=== PATIENT | male | born 1960 | race Caucasian/White ===

== ENCOUNTER 2020-02-18 07:04 | Day surgery (SDC) | payer BC ==
[2020-02-17 11:51] LABS: HEMATOCRIT 44.3 % (42.0-54.0); HEMOGLOBIN 14.7 g/dL (13.5-17.5); MCH 31.3 pg (26.0-34.0); MCHC 33.2 g/dL (31.0-37.0); MCV 94.3 fL (80.0-100.0); MEAN PLATELET VOLUME 12.3 fL (7.4-10.4); RBC 4.7 10x6/uL (4.20-6.10); RDW 14.8 % (11.5-14.5); WBC 7.2 10x3/uL (4.8-10.8)
[2020-02-17 11:54] LABS: CALC OSMOLALITY 276 mosm/kg (275-300); CALCIUM 8.5 mg/dL (8.5-10.1); CARBON DIOXIDE 27.6 mmol/L (21.0-32.0); CHLORIDE - SERUM 103 mmol/L (98-107); CREATININE - SERUM 0.9 mg/dL (0.6-1.3); GLUCOSE 98 mg/dL (74-106); POTASSIUM - SERUM 4.3 mmol/L (3.5-5.1); SODIUM 139 mmol/L (136-145); UREA NITROGEN 9 mg/dL (7-18); eGFR NON AFRICAN AMERICAN > 90 mL/min (90-120)
[~2020-02-18] VITALS: Ht 182.9 cm; Wt 99.8 kg
[~2020-02-18 07:04] MED LIST: DILTIAZEM 24HR180 M4 PO; LISINOPRIL40 MG PO; MICARDIS40 MG PO
[2020-02-18 07:34] VITALS: BP 127/70; Ht 182.9 cm; Wt 99.8 kg
[2020-02-18] MEDS ORDERED: PERCOCET 10-321 EAC1 PO (09:17)
[2020-02-18] MEDS ORDERED: VISTARIL50 MG PO (09:18)
--- NOTE | 2020-02-18 12:44 | NUR ---
DC INSTRUCTIONS GIVEN TO PT. STATES UNDERSTANDING. DC'D IV CATH FULLY INTACT.
--- NOTE | 2020-02-18 12:57 | NUR ---
PT LEFT UNIT VIA WC AT 1245
--- NOTE | 2020-02-19 10:34 | OP ---
PATIENT NAME: HARSHIL CHERRY MEDICAL RECORD: [id number] :58 LOCATION:[facility] ADMISSION DATE: SURGEON: ARTURO WARNER DO DATE OF OPERATION: 02/18/2020 PROCEDURE PERFORMED: Right shoulder arthroscopy with subacromial decompression, distal clavicle excision, biceps tenodesis. PREOPERATIVE DIAGNOSES: Right shoulder rotator cuff tear, acromioclavicular joint arthritis, subacromial impingement and labral tear. POSTOPERATIVE DIAGNOSES: Right shoulder acromioclavicular joint arthritis, subacromial impingement and labral tear. INDICATIONS: Mr. Cherry is a 59-year-old male that has had right shoulder pain for quite some time. He had a rotator cuff repair done quite a few years ago. He had continued pain and was hurting quite a bit. According to MRI report, he had an irregular tear of the rotator cuff and AC joint arthritis as well as subacromial impingement and possible SLAP tear. I informed him of the risks including infection, bleeding, damage to nerves and vessels, need for further surgery, continued pain, retear of the rotator cuff and he signed the consent. SURGEON: Arturo Warner MD DESCRIPTION OF PROCEDURE: The patient was taken to the operative suite. After getting a block by anesthesia in preoperative area, given 900 mg of clindamycin, laid in the left lateral decubitus position with the right shoulder up. Right shoulder was then prepped and draped in sterile fashion. The patient had been sedated and LMA placed. The timeout was performed. Everyone was in agreeance with the correct side, site, patient and procedure. After he was prepped and draped, we then inflated the joint with 6 mL of normal saline through the posterior portal and 18-gauge spinal needle. We then made an incision with an 11-blade scalpel and trocar was entered into the joint. Once the joint was entered, I established an anterior portal with an 18-gauge spinal needle and 11-blade scalpel and the trocar was brought in. I then inspected, he did have a type 2 SLAP tear noted about the superior labrum; however, there was only a partial tear really, not much of the subscapularis and I did not see on the articular side tear at all of the supraspinatus or infraspinatus. There were no loose bodies in the joint. The cartilage was in good repair, nothing in the inferior gutter. I then went to the subacromial space and the bicep was cut with a burner. A tenotomy was done at the long head of the biceps tendon. I then went to subacromial space through subacromial decompression, distal clavicle excision, opened up the AC joint to approximately 7-mm. I then did an acromioplasty and took the bursa over the supraspinatus. The rotator cuffs were then inspected on the bursal side and again no tears were seen. I then removed the scope and went to the anterior humerus, made an incision and fished out the long head of the biceps tendon. I then put a 2.9 JuggerLoc unicortical bicep fixation anchor in and looped it through that and the long head of the biceps tendon was cinched down to the humerus and took a free needle and went through the biceps tendon and tied that down to the free sutures of the anchor and then tied that and cut the excess suture and excess tendon. We then irrigated and it was closed by Kalin Ny, certified surgical first breaker feeder with 2-0 Vicryl in inverted interrupted fashion, 4-0 Monocryl an on the skin. He then closed the portal sites with 4-0 Monocryl in an inverted interrupted fashion and then put glue on all of them. He was then placed with Telfa and Tegaderm on the OPERATIVE REPORT [id number] HARSHIL CHERRY incisions and placed in a sling. He was awakened and taken to recovery in stable condition. BLOOD LOSS: Minimal. COMPLICATIONS: None. TRANSINT:[id number] Voice Confirmation ID: [id number] DOCUMENT ID: [id number] ARTURO WARNER DO at 1034 CC: [id number] DICTATION DATE: 02/18/20 1013 TRAINING OFFICER: 02/18/20 1718 [facility] 02/18/20 [id number] [place] [address]
== END 2020-02-18 12:45 | disposition home or self-care (01) ==
LOC: D.OPS 07:04 → D.PAN 11:15 → D.OPS 12:45
PROVIDERS: Anesthesiology; ATTEND Orthopaedic Surgery
DX: M75.121 Complete rotator cuff tear or rupture of right shoulder, not specified as traumatic (principal); M19.011 Primary osteoarthritis, right shoulder; M25.811 Other specified joint disorders, right shoulder; I10 Essential (primary) hypertension; Z72.0 Tobacco use

== ENCOUNTER 2020-07-14 05:12 | Day surgery (SDC) | payer BC ==
[2020-07-12 08:58] LABS: HEMATOCRIT 42.7 % (42.0-54.0); HEMOGLOBIN 14.2 g/dL (13.5-17.5); MCH 31.8 pg (26.0-34.0); MCHC 33.3 g/dL (31.0-37.0); MCV 95.5 fL (80.0-100.0); MEAN PLATELET VOLUME 12.1 fL (7.4-10.4); RBC 4.47 10x6/uL (4.20-6.10); RDW 14.3 % (11.5-14.5); WBC 7.2 10x3/uL (4.8-10.8)
[2020-07-12 09:06] LABS: ANION GAP 11.6 mmol/L (8-16); CALCIUM 8.7 mg/dL (8.5-10.1); CARBON DIOXIDE 27.5 mmol/L (21.0-32.0); CREATININE - SERUM 1.1 mg/dL (0.6-1.3); POTASSIUM - SERUM 4.1 mmol/L (3.5-5.1)
[~2020-07-14] VITALS: Ht 182.9 cm; Wt 99.8 kg
[~2020-07-14 05:12] MED LIST changes: +ALDACTONE50 MG PO; +PERCOCET 10-321 EAC1 PO; +VISTARIL50 MG PO
[2020-07-14 06:14] VITALS: BP 142/72; Ht 182.9 cm; Wt 99.8 kg
--- NOTE | 2020-07-15 12:33 | OP ---
PATIENT NAME: HARSHIL CHERRY MEDICAL RECORD: [id number] :58 LOCATION:[facility] ADMISSION DATE: SURGEON: ARTURO WARNER DO DATE OF OPERATION: 07/14/2020 PROCEDURE PERFORMED: Right shoulder arthroscopy with rotator cuff repair, mini open. PREOPERATIVE DIAGNOSIS: Right shoulder rotator cuff tear. POSTOPERATIVE DIAGNOSIS: Right shoulder rotator cuff tear. INDICATIONS: Mr. Cherry is a 59-year-old male who underwent right shoulder scope with biceps tenodesis, subacromial decompression, distal clavicle excision some months ago. He was doing well and then went to pet his dog and felt a pop in his shoulder. We got an MR arthrogram of the right shoulder that showed a tear in the supraspinatus tendon full thickness and we talked about the options. He wanted something done surgically but did not want to do it immediately and waited until now to do it. I informed him of the risks including infection, bleeding, damage to nerves or vessels, need for further surgery, retear of the tendon, continued pain, arthrofibrosis of the shoulder, blood clots, infection, and even and he signed the consent. SURGEON: Arturo Warner DO. DESCRIPTION OF PROCEDURE: The patient was taken to the operative suite, laid in the left lateral decubitus position with the right shoulder up. He was given 900 mg of clindamycin and a block by anesthesia in the preoperative area. He was sedated and LMA was placed. The right shoulder was then prepped and draped in sterile fashion. Time-out was performed and everyone was in agreement with the correct site, side, patient, and procedure. I then inserted an 18-gauge spinal needle through the posterior portal into the shoulder joint itself and inflated the joint with 60 mL normal saline. I then established posterior portal with an 11 blade scalpel. Trocar was then entered into the shoulder joint. I then inspected the shoulder. Subscapularis tendon was in good repair and the cartilage as well. There was nothing in the inferior gutter. The supraspinatus tendon was torn full thickness as well as a small portion of the infraspinatus. Once that was discovered through the lateral portal I put an 18-gauge spinal needle to rg it and then went to the subacromial space, solid as well. I then removed the scope and opened up the lateral portion of the shoulder down. I made blunt dissection down with an [employer]'s pickup and scissors down to the tear. I removed the bursa and then opened up the tear. I put in a 5.5 Quattro BroadBand suture anchor for medial row. I bit 4 sutures through and then did two 4.5 Ventix anchors laterally. I then placed a medium Regeneten implant over the repair site and stapled it into place medial and lateral. I then irrigated the site. Kalin Ny, certified surgical territory manager, closed the incision with 2-0 Vicryl in interrupted fashion, 4-0 Monocryl ran on the skin, and Prineo and Dermabond glue on the skin. He was then awakened and taken to recovery in stable condition and put in a sling. ESTIMATED BLOOD LOSS: Minimal. COMPLICATIONS: None. NTS:[id number] Voice Confirmation ID: [id number] DOCUMENT ID: [id number] OPERATIVE REPORT [id number] HARSHIL CHERRY MICHAEL D, DO at 1233 CC: [id number] DICTATION DATE: 07/14/20830 REPAIR ELECTRIC MOTOR ASSEMBLER: 07/14/201915 [facility] 07/14/20 [facility] [address] [place] [address]
== END 2020-07-14 10:05 | disposition home or self-care (01) ==
LOC: D.OPS 05:12 → D.PAN 08:30 → D.OPS 10:05
PROVIDERS: Anesthesiology; ATTEND Orthopaedic Surgery
DX: M75.101 Unspecified rotator cuff tear or rupture of right shoulder, not specified as traumatic (principal); M25.511 Pain in right shoulder